=== PATIENT | male | born 2000 | race Caucasian/White ===

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

== ENCOUNTER 2018-12-25 15:40 | Emergency (ER) | payer MEDICAID, SELFPAY ==
[2018-12-25 15:41] VITALS: BP 147/76; PULSE 127; RESP 31; TEMP 36.8; O2SAT 96; BMI 29.2
[2018-12-25 15:44] VITALS: PULSE 134; RESP 22; O2SAT 94
--- NOTE | 2018-12-25 15:51 | ED.DCSUM_ITS ---
History of Present Illness Chief Complaint: Seizure Detail of Chief Complaint: Generalized tonic-clonic seizure Informant: Family Onset: Today Context: Sudden Onset Timing: Intermittent Quality: Generalized tonic-clonic seizure Location: Home Current Severity: - - Combative Maximum Severity: - - Unable to determine Worsened by: Nothing per father Relieved by: Diastat Associated Symptoms: Combativeness after seizure Narrative: Patient is a 18-year-old who is nonverbal and has autism with seizure disorder who has not had a seizure in greater than 1 year. He apparently was aggressive towards his grandmother. Father took a tablet from him. He had a generalized tonic-clonic seizure with blood from mouth and foaming of his mouth . Father gave Diastat 2 minutes after onset of seizure. Paramedics gave Haldol IM. History and physical are limited because patient is presently in restraints because he is aggressive and striking at personnel. Patient had meds changed because there was concern may lead to increased seizure activity. He was restarted on meds he was on a year ago. Prior similar symptoms: Yes Recent Illness/Hospitalization: No - Past Medical History (1) History of seizure disorder Status: Acute (2) History of autism Status: Acute (3) Nonverbal Status: Acute Past Medical History - Allergies and Home Meds Allergies/Adverse Reactions: Allergies gluten Adverse Reaction (Verified 10/24/17 11:40) Other lactase [From [employer]] Adverse Reaction (Verified 10/24/17 11:40) Other peanut Adverse Reaction (Verified 10/24/17 11:40) Other Primary Care Physician: Jake Bajwa MD [Primary Care Provider] - Prior records reviewed: Yes Lives: With Family Smoking Status: Never smoker Alcohol: None Drugs: None Review of Systems ROS: Unable to Obtain - Nonverbal Physical Exam Vital Signs/Narrative: Vital Signs Temp Pulse Resp BP Pulse Ox 12/25/18 15:44 134 H 22 H 94 12/25/18 15:41 98.2 F 127 H 31 H 147/76 H 96 Inital Vital Signs reviewed: Yes - Initial pulse ox was 86-88% with good waveform General: Well nourished, Well developed, No Acute Distress Head: Normocephalic, Atraumatic Eyes: Perrl, EOMI. Negative for: Pale conjunctiva, Scleral icterus ENT: Moist mucous membranes, No rhinorrhea Neck: Supple, Nontender, No lymphadenopathy, No JVD Cardiovascular: Regular rate, Regular rhythm, No murmurs, Normal S1, Normal S2 Respiratory: No distress, CTA bilaterally, Chest nontender Abdomen: Soft, Nontender, Nondistended, Normal bowel sounds Rectal: Deferred Back: Nontender, Normal Inspection Extremities: Nontender, No edema Skin: Normal color, No rash Neurological: Alert, - - Moves all extremities. There is no clonus. Bilateral Babinski sign. Since patient is in restraints unable to assess deep tendon r eflex. He moves extremities to light touch. Strength appears to be 5/5. Psychological: - - Unable to determine Diagnostic/Tx/Re-eval Chest X-Ray - ED: 1 View, Read by ED Physician, Normal, Heart, Lungs, Mediastinum, Bony Structures, No Acute Disease, Chronic Changes, - - Single view is a lordotic view. Impressions Chest X-Ray 12/25/18 16:00 IMPRESSION: Normal x-ray examination of the chest. Electronically Signed: Michoacano Dumont MD at 16:16 EDT Tel , Service support , 12/25/18 16:00 Chest 1 View (Portable) [RAD] Stat Laboratory Results 12/25/18 12/25/18 16:00 16:00 WBC 9.8 RBC 5.65 Hgb 15.9 Hct 46.2 MCV 81.8 MCH 28.1 MCHC 34.4 RDW Std Deviation 37.0 RDW Coeff of Kena 12.4 Plt Count 276 MPV 9.9 Immature Gran % (Auto) 1.000 H Neut % (Auto) 71.1 H Lymph % (Auto) 19.5 [place] % (Auto) 7.4 Eos % (Auto) 0.8 Baso % (Auto) 0.2 Absolute Neuts (auto) 7.0 Absolute Lymphs (auto) 1.91 Nucleated RBC % 0 Sodium 140 Potassium 3.3 L Chloride 105 Carbon Dioxide 21.0 Anion Gap 14 BUN 14 Creatinine 1.50 H Estim Creat Clear Calc 81.11 Est GFR (MDRD) Af Amer 77 Est GFR (MDRD) Non-Af 63 BUN/Creatinine Ratio 9.3 L Glucose 111 H Calcium 9.0 Creatinine is elevated. Will review old records to determine if he has chronic renal insufficiency. - Medical Decision Making With low pulse ox will obtain chest x-ray to assess for infiltrate. He may have aspirated. Clinically he feels very warm. TA temperature is normal. Will attempt to obtain oral. View of old records indicates elevated creatinine is new from prior. CBC and differential unremarkable. Chest x-ray revealed no evidence of aspiration. Pulse ox has improved. The hypoxia may be secondary to combination of Diastat and Haldol. Father was informed that the creatinine is elevated and will need follow-up with Dr. Bajwa for reassessment. ED Disposition - Plan for ED Patient: Disposition: Home or Assisted Living Diagnosis: Generalized tonic-clonic seizure, Acute renal insufficiency Instructions: SEIZURE, Recurrent [Adult] Referrals: Jake Bajwa MD [Primary Care Provider] - 1-2 Weeks Additional Instructions: Contact Dr. Bajwa's office to have blood work in 1 to 2 weeks to assess renal function.
--- NOTE | 2018-12-25 16:00 | RAD_ITS ---
STUDY: X-RAY CHEST REASON FOR EXAM: Male, 18 years old. Seizure TECHNIQUE: Single AP portable view of the chest. COMPARISON: None. FINDINGS: The lungs are clear and expanded. There is no demonstrated pleural abnormality. Normal size heart. Normal mediastinum and claudette. Normal visualized pulmonary arteries. Normal visualized aortic arch and descending thoracic aorta. Normal visualized thoracic spine. Normal visualized ribs, clavicles, and shoulders. There is no demonstrated abnormality of the visualized soft tissue structures of the upper abdomen. RAD/Chest 1 View (Portable) IMPRESSION: Normal x-ray examination of the chest. Electronically Signed: Michoacano Dumont MD at 16:16 EDT Tel , Service support ,
[2018-12-25 16:24] LABS: Absolute Lymphocyte Count 1.91 X10^3/uL (0.83-4.51); Anion Gap 14 (5-15); BUN 14 mg/dL (7-18); BUN/Creat Ratio 9.3 RATIO (10-20); Basophil# 0.02 X10^3/uL; Basophil% 0.2 % (0-1); Chloride 105 mmol/L (98-107); EST Glomerular Filtration Rate 63 mL/min (>60); Eosinophil# 0.08 X10^3/uL; Eosinophils% 0.8 % (0-5); Est Glom Filt Rate - Afr Amer 77 mL/min (>60); Estimated Creatinine Clearance 81.11 ml/min; Glucose 111 mg/dL (74-106); Hematocrit 46.2 % (40-54); Hemoglobin 15.9 g/dL (13.0-16.5); Lymphocyte # 1.91 X10^3/ul (4.0); Lymphocyte % 19.5 % (19-41); Mean Corp Hgb Conc 34.4 g/dL (32-36); Mean Corpuscular Hgb 28.1 pg (27.0-32.0); Mean Corpuscular Volume 81.8 fL (80-94); Mean Platelet Vol. 9.9 fl (6.2-12.0); Monocyte# 0.73 X10^3/uL; Monocyte% 7.4 % (0-10); NRBC Flagged by Analyzer 0 % (0-5); Neutrophil # 6.96 X10^3/uL (2.7-7.7); Neutrophil % 71.1 % (47-70); Platelet Count 276 K/mm3 (150-450); Potassium 3.3 mmol/L (3.5-5.1); RBC Distribution Width CV 12.4 % (11.6-14.6); Red Blood Count 5.65 M/mm3 (4.6-6.2); Sodium Level 140 mmol/L (136-145); White Blood Count 9.8 K/mm3 (4.4-11.0)
--- NOTE | 2018-12-25 16:25 | ED.RN ---
pt arrives to ed with 4 point soft limb restraints in place by ems. father and ems wrestled with patient at home. post seizure pt is aggressive and confused. per father pt has hx of similar response post seizures. he was given 5 mg Haldol IM by ems. upon arrival he was secured to the bed and IV was obtained. pt pulled IV shortly after being placed. blood work was obtained and dr stated no need for another line. stimuli was decreased and father at bedside. dr was consulted on addition medications to assist patient with remaining calm.no additional medications were ordered. janet valdez, rn [id number]
[2018-12-25 17:01] VITALS: PULSE 99; RESP 15; O2SAT 97
== END 2018-12-25 17:02 | disposition home or self-care (01) ==
PROVIDERS: Emergency Provider Emergency Medicine; Family Provider Pediatrics; PCP Pediatrics
DX: G40.409 Other generalized epilepsy and epileptic syndromes, not intractable, without status epilepticus (principal); N28.9 Disorder of kidney and ureter, unspecified; F84.0 Autistic disorder; Z78.1 Physical restraint status; Z79.899 Other long term (current) drug therapy
CPT/HCPCS: 71045; 80048; 85025; 99285